=== PATIENT | female | born 1975 | race Caucasian/White ===

== ENCOUNTER 2017-06-28 11:08 | Emergency (ER) | payer OTHER ==
[2017-06-28 12:17] LABS: BILIRUBIN,URINE NEGATIVE (NEGATIVE); GLUCOSE, URINE (UA) NEGATIVE (NEGATIVE); KETONES,URINE (UA) NEGATIVE (NEGATIVE); LEUKOCYTE ESTERASE, URINE NEGATIVE (NEGATIVE); NITRITE,URINE NEGATIVE (NEGATIVE); OCCULT BLOOD,URINE SMALL (NEGATIVE); PH,URINE 5.5 PH (5.0-7.5); PROTEIN,URINE NEGATIVE (NEGATIVE); UROBILINOGEN,URINE 0.2 (NORMAL) E.U./dL (NORMAL)
[2017-06-28 12:22] LABS: CLARITY,URINE CLEAR (CLEAR)
[2017-06-28 12:28] LABS: BACTERIA,URINE Few /HPF (None Seen); RBC,URINE 0-5 /HPF (0-5); SQUAMOUS EPITHELIAL CELL,UR FEW Squamous (<= Few)
--- NOTE | 2017-06-28 13:16 | ED Physician Documentation ---
History of Present Illness - Stated complaint Stated Complaint: DIZZY - Chief complaint Chief Complaint: General - History obtained from History obtained from: Patient - History of Present Illness Timing: Other (For the last 6 weeks or so she has had intermittent episodes of feeling off balance that lasts from seconds to minutes at a time and at times are followed by nausea. It it can happen in any position and is not necessarily related to motion of the head. She denies any trouble with her hearing or tinnitus or ringing in her ears or anything else with her ears. She has blurry vision when happens but outside of that has had no visual changes. She denies any possibility of . Of note she has been feeling very fatigued over the same timeframe and has gained some weight because of decreased activity because of it. She notes no hair or nail changes, no recent travel. She is active duty in the [employer].) Review of Systems Constitutional: reports: Fatigue. denies: Fever, Chills, Myalgias, Weight Loss , Sweats Nose: denies: Rhinorrhea / runny nose, Congestion Throat: denies: Sore throat Respiratory: denies: Dyspnea, Cough GI: denies: Abdominal Pain, Vomiting, Diarrhea PD PAST MEDICAL HISTORY - Past Medical History Cardiovascular: Murmur : Kidney stones Musculoskeletal: Chronic back pain - Past Surgical History Past Surgical History: No - Present Medications Home Medications: Ambulatory Orders Medication Instructions Recorded Confirmed Levonorgestrel [Mirena] 12/30/15 - Allergies Allergies/Adverse Reactions: Allergies Allergy/AdvReac Type Severity Reaction Status Date / Time No Known Drug Allergies Allergy Verified 12/30/15 13:38 - Social History Does the pt smoke?: No Smoking Status: Never smoker Does the pt drink ETOH?: Yes - Immunizations Immunizations are current?: Yes PD ED PE NORMAL - Vitals Vital signs reviewed: Yes - General General: Alert and oriented X 3, No acute distress - HEENT HEENT: PERRL, EOMI - Neck Neck: Supple, no meningeal sign, No bony TTP - Cardiac Cardiac: RRR, No murmur - Respiratory Respiratory: No respiratory distress, Clear bilaterally - Abdomen Abdomen: Normal bowel sounds, Soft, Non tender - Back Back: No CVA TTP, No spinal TTP - Extremities Extremities: No edema, No calf tenderness / cord - Neuro Neuro: Alert and oriented X 3, Normal speech, Other (NIHSS zero) Results - Vitals Vitals: Vital Signs - 24 hr 06/28/17 06/28/17 11:19 13:23 Temperature 36.4 C L 36.8 C Heart Rate 66 77 Respiratory 16 16 Rate Blood Pressure 141/83 H 131/87 H O2 Saturation 99 97 Oxygen O2 Source Room air - Labs Labs: Laboratory Tests 06/28/17 06/28/17 06/28/17 11:50 13:28 13:28 WBC 6.7 RBC 4.52 Hgb 13.8 Hct 40.5 MCV 89.6 MCH 30.6 MCHC 34.1 RDW 12.2 Plt Count 212 MPV 8.5 Neut # 4.0 Lymph # 2.2 Delta # 0.4 Eos # 0.0 Baso # 0.0 Absolute Nucleated RBC 0.00 Nucleated RBC % 0.0 Sodium 137 Potassium 3.6 Chloride 105 Carbon Dioxide 24 Anion Gap 8.0 BUN 10 Creatinine 0.7 Estimated GFR (MDRD) 92 Glucose 106 H Calcium 9.1 Total Bilirubin 0.6 AST 25 ALT 17 Alkaline Phosphatase 51 Total Protein 7.5 Albumin 4.0 Globulin 3.5 Albumin/Globulin Ratio 1.1 Lipase 30 TSH Serum HCG, Qual Urine Color YELLOW Urine Clarity CLEAR Urine pH 5.5 Ur Specific [place] 1.020 Urine Protein NEGATIVE Urine Glucose (UA) NEGATIVE Urine Ketones NEGATIVE Urine Occult Blood SMALL H Urine Nitrite NEGATIVE Urine Bilirubin NEGATIVE Urine Urobilinogen 0.2 (NORMAL) Ur Leukocyte Esterase NEGATIVE Urine RBC 0-5 Urine WBC 0-3 Ur Squamous Epith Cells FEW Squamous Urine Bacteria Few Ur Microscopic Review INDICATED Urine Culture Comments NOT INDICATED Urine HCG, Qual 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[employer] 06/28/17 06/28/17 13:28 13:28 WBC RBC Hgb Hct MCV MCH MCHC RDW Plt Count MPV Neut # Lymph # Delta # Eos # Baso # Absolute Nucleated RBC Nucleated RBC % Sodium Potassium Chloride Carbon Dioxide Anion Gap BUN Creatinine Estimated GFR (MDRD) Glucose Calcium Total Bilirubin AST ALT Alkaline Phosphatase Total Protein Albumin Globulin Albumin/Globulin Ratio Lipase TSH 0.81 Serum HCG, Qual NEGATIVE Urine Color Urine Clarity Urine pH Ur Specific [place] Urine Protein Urine Glucose (UA) Urine Ketones Urine Occult Blood Urine Nitrite Urine Bilirubin Urine Urobilinogen Ur Leukocyte Esterase Urine RBC Urine WBC Ur Squamous Epith Cells Urine Bacteria Ur Microscopic Review Urine Culture Comments Urine HCG, Qual PD MEDICAL DECISION MAKING - ED course ED course: Intermittent vertigo, concerning though the fatigue over the same timeframe so lab work was done and negative. Advised to follow-up with her physician for further evaluation. Departure - Departure Disposition: 01 Home, Self Care Clinical Impression: Dizziness Fatigue Qualifiers: Fatigue type: unspecified Qualified Code(s): R53.83 - Other fatigue Condition: Good Record reviewed to determine appropriate education?: Yes Instructions: ED Dizziness [facility] Comments: [place] Return if worse. Discuss imaging of your head, specifically [place] Discharge Date/Time: 06/28/17 13:29
[2017-06-28 13:24] VITALS: BP 131/87
[2017-06-28 13:34] LABS: BASOPHILS % (AUTO) 0.5 %; EOSINOPHILS % (AUTO) 0.6 %; HGB - HEMOGLOBIN 13.8 g/dL (12.0-16.0); LYMPHOCYTES # (AUTO) 2.2 10^3/uL (1.5-3.5); LYMPHOCYTES % (AUTO) 32.7 %; MEAN CORPUSCULAR HEMOGLOBIN 30.6 pg (27.0-31.0); MEAN CORPUSCULAR HGB CONC 34.1 g/dL (32.0-36.0); MEAN CORPUSCULAR VOLUME 89.6 fL (81.0-99.0); MEAN PLATELET VOLUME 8.5 fL (7.9-10.8); MONOCYTES # (AUTO) 0.4 10^3/uL (0.0-1.0); MONOCYTES % (AUTO) 6.3 %; NEUTROPHILS % (AUTO) 59.9 %; PLT - PLATELET COUNT 212 10^3/uL (130-450); RED BLOOD COUNT 4.52 10^6/uL (4.20-5.40); RED CELL DISTRIBUTION WIDTH 12.2 % (12.0-15.0); WHITE BLOOD COUNT 6.7 x10^3/uL (4.8-10.8)
[2017-06-28 13:47] LABS: ALBUMIN/GLOBULIN RATIO 1.1 (1.0-2.2); BILIRUBIN,TOTAL 0.6 mg/dL (0.2-1.0); CALCIUM 9.1 mg/dL (8.5-10.3); CREATININE 0.7 mg/dL (0.4-1.0); TOTAL PROTEIN 7.5 g/dL (6.7-8.2)
[2017-06-28 14:12] LABS: HCG,QUALITATIVE BLOOD NEGATIVE
== END 2017-06-28 13:29 | disposition home or self-care (01) ==
LOC: ED 11:08
DX: R42 Dizziness and giddiness (principal); R53.83 Other fatigue
CPT/HCPCS: 36415; 80053; 81001; 81003; 81025; 83690; 84443; 84703; 85025; 87086; 99283

== ENCOUNTER 2018-05-19 13:24 | Emergency (ER) | payer OTHER ==
[2018-05-19] MEDS ORDERED: DEXAMETHASONE 10 MG/ML VIAL IVP STA (13:38)
[2018-05-19] MEDS ORDERED: FAMOTIDINE 20 MG in SODIUM CHLORIDE 0.9% 50 ML IV STA (13:38)
[2018-05-19] MEDS ORDERED: EPINEPHrine 1 MG/ML AMP IM STA (13:39)
[2018-05-19] MEDS ORDERED: diphenhydrAMINE INJ 50 MG/ML VIAL IVP STA (13:42)
--- NOTE | 2018-05-19 17:18 | ED Physician Documentation ---
History of Present Illness - Stated complaint Stated Complaint: BEE STING/THROAT SWELLING/DIZZY - Chief complaint Chief Complaint: General - Additonal information Additional information: 42-year-old female presents the emergency department for evaluation of an allergic reaction to a bee sting which occurred just prior to arrival.The patient reports throat tightness and shortness of breath. No relieving factors. Symptoms are described as severe. No other associated symptoms. Review of Systems Constitutional: denies: Fever, Chills Eyes: denies: Discharge Ears: denies: Ear pain Nose: denies: Congestion Throat: denies: Sore throat Respiratory: reports: Dyspnea GI: denies: Abdominal Pain : denies: Dysuria Musculoskeletal: denies: Neck pain Neurologic: denies: Generalized weakness Immunocompromised: denies: Chemotherapy PD PAST MEDICAL HISTORY - Past Medical History Cardiovascular: Murmur : Kidney stones Musculoskeletal: Chronic back pain - Past Surgical History Past Surgical History: Yes - Present Medications Home Medications: Ambulatory Orders Medication Instructions Recorded Confirmed Levonorgestrel [Mirena] 12/30/15 Epinephrine [Epipen 2-Ortiz] 0.3 mg IJ PRN PRN #1 auto.injct 05/19/18 Loratadine [Claritin] 10 mg PO DAILY PM 05/19/18 05/19/18 - Allergies Allergies/Adverse Reactions: Allergies Allergy/AdvReac Type Severity Reaction Status Date / Time No Known Drug Allergies Allergy Verified 05/19/18 13:28 - Social History Does the pt smoke?: No Smoking Status: Never smoker Does the pt drink ETOH?: Yes Does the pt have substance abuse?: No - Immunizations Immunizations are current?: Yes PD ED PE NORMAL - General General: Alert and oriented X 3 - HEENT HEENT: Atraumatic, PERRL, EOMI, Ears normal, Other (The tongue is within normal limits, there is no swelling of the posterior pharynx, the floor the mouth is moist and soft) - Neck Neck: Other (No stridor) - Cardiac Cardiac: RRR (Regular tachycardia), Strong equal pulses - Respiratory Respiratory: No respiratory distress, Clear bilaterally - Abdomen Abdomen: Soft, Non tender - Derm Derm: Normal color - Extremities Extremities: No deformity, No edema - Neuro Neuro: Alert and oriented X 3, Normal speech Results - Vitals Vitals: Vital Signs - 24 hr 05/19/18 05/19/18 05/19/18 13:27 14:04 14:44 Temperature 36.2 C L Heart Rate 114 H 90 93 Respiratory 22 18 18 Rate Blood Pressure 152/108 H 139/79 H 140/77 H O2 Saturation 98 99 99 05/19/18 05/19/18 05/19/18 15:20 16:22 17:27 Temperature Heart Rate 80 92 85 Respiratory 20 18 18 Rate Blood Pressure 140/70 H 129/81 H 131/75 H O2 Saturation 98 99 97 Oxygen O2 Source Room air PD MEDICAL DECISION MAKING - ED course ED course: The patient was treated with epinephrine, Decadron, Pepcid and Benadryl and the patient was observed in the emergency department for 4 hours. The patient had resolution of her symptoms early and had no rebound symptoms. The patient on final evaluation was resting comfortably and was back to her baseline. Currently, the patient appears appropriate for discharge and will be given a prescription for an epinephrine pen. I recommended follow-up with primary care. I discussed warning signs and recommended returning to the emergency department immediately for any worsening or any concerns Departure - Departure Disposition: 01 Home, Self Care Clinical Impression: Allergic reaction Qualifiers: Encounter type: initial encounter Qualified Code(s): T78.40XA - Allergy, unspecified, initial encounter Condition: Good Instructions: ED Bite Sting Insect Gen Allergic React Follow-Up: MARIA G Bishop [Provider Group] - Within 3 Days Prescriptions: Epinephrine [Epipen 2-Ortiz] 0.3 mg IJ PRN PRN #1 auto.injct PRN Reason: Anaphylaxis Comments: Please return to the emergency department for worsening symptoms or any concerns
[2018-05-19 17:39] VITALS: BP 128/80
== END 2018-05-19 17:39 | disposition home or self-care (01) ==
LOC: ED 13:24
DX: T63.441A Toxic effect of venom of bees, accidental (unintentional), initial encounter (principal)
CPT/HCPCS: 96365; 96372; 96375; 99283; J1200; J7040

== ENCOUNTER 2019-06-09 19:07 | Emergency (ER) | payer OTHER ==
[2019-06-09 19:18] VITALS: BP 129/81
[2019-06-09] MEDS ORDERED: AMOX/CLAV 875 MG/125 MG TABLET PO STA (19:41)
--- NOTE | 2019-06-09 19:41 | ED Physician Documentation ---
History of Present Illness - Stated complaint Stated Complaint: CONGESTION,CHEST congestion - Chief complaint Chief Complaint: Resp - History obtained from History obtained from: Patient - History of Present Illness Timing: How many days ago (5) Pain level max: 3 Pain level now: 3 - Additonal information Additional information: 43 year old female, chronic back pain, presents to the emergency department because of 5 days of nasal congestion, low grade temp of 100 at night, nonproductive, right ear fullness, frontal sinus pressure with headache and myalgia. 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 She denies photophobia, neck stiffness, neck pain. She denies any nausea, vomi ting or diarrhea, abdominal pain. She reports of chest heaviness with coughing. She was seen by PCP and was prescribed tessalon pearls and pseudofed without improvement. Review of Systems Constitutional: reports: Fever, Chills, Myalgias Eyes: denies: Loss of vision, Decreased vision, Photophobia, Discharge Ears: reports: Ear pain (right ear fullness) Nose: reports: Rhinorrhea / runny nose, Congestion. denies: Epistaxis Throat: denies: Dental pain / toothache, Oral lesions / sores, Sore throat Cardiac: denies: Palpitations, Pedal edema, Calf pain Respiratory: reports: Cough GI: denies: Abdominal Pain, Nausea, Vomiting : denies: Dysuria Skin: denies: Rash Musculoskeletal: denies: Neck pain, Back pain Neurologic: denies: Generalized weakness, Focal weakness, Numbness, Syncope PD PAST MEDICAL HISTORY - Past Medical History Cardiovascular: Murmur Neuro: None Endocrine/Autoimmune: None GI: None : Kidney stones Psych: None Musculoskeletal: Chronic back pain - Past Surgical History Past Surgical History: Yes - Present Medications Home Medications: Ambulatory Orders Medication Instructions Recorded Confirmed Levonorgestrel [Mirena] 12/30/15 EPINEPHrine [Epipen 2-Ortiz] 0.3 mg IJ PRN PRN #1 auto.injct 05/19/18 Loratadine [Claritin] 10 mg PO DAILY PM 05/19/18 05/19/18 Amox/Clav 875/125 [Augmentin] 1 each PO Q12H #20 tablet 06/09/19 Omeprazole 40 mg PO DAILY 06/09/19 06/09/19 - Allergies Allergies/Adverse Reactions: Allergies Allergy/AdvReac Type Severity Reaction Status Date / Time No Known Drug Allergies Allergy Verified 06/09/19 19:18 - Social History Does the pt smoke?: No Smoking Status: Never smoker Does the pt drink ETOH?: Yes Does the pt have substance abuse?: No - Immunizations Immunizations are current?: Yes PD ED PE NORMAL - Vitals Vital signs reviewed: Yes - General General: Alert and oriented X 3, No acute distress, Well developed/nourished, Other (tearful) - HEENT HEENT: Atraumatic, PERRL, EOMI, Ears normal, Other (bilateral TMs were visualized, translucent without erythema. 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 She reports of low grade temp and symptoms are not improving despite conservative management. She was nontoxic in appearance. No meningismus or photophobia, nausea, vomiting to suggest meningitis. Lungs were clear to auscultation and oxygen saturation was within normal limits. I do not suspect pneumonia. With persistent and worsening symptoms, I recommend to try over the counter saline drops to clear nasal passages. Patient was given a prescription of Augmentin BID for 10 days. Outpatient follow up with PCP in 3-5 days was recommended. Strict return instructions were. Patient expressed verbal understanding and was discharged in stable condition. Departure - Departure Disposition: 01 Home, Self Care Clinical Impression: Sinusitis Condition: Stable Instructions: ED Sinusitis Abx Tx Ch Follow-Up: MARIA G Bishop [Provider Group] - Within 3 Days Prescriptions: Amox/Clav 875/125 [Augmentin] 1 each PO Q12H #20 tablet Comments: PLEASE FOLLOW UP WITH YOUR CLINIC IN 3-5 DAYS. PLEASE USE OVER THE COUNTER SALINE NASAL SPRAY FOR SYMPTOMATIC TREATMENT OF NASAL CONGESTION. YOU MAY CONTINUE TO USE PSEUDOFED FOR CONGESTION AND TESSALON PEARLS FOR COUGH. PLEASE RETURN TO THE EMERGENCY DEPARTMENT IF YOU EXPERIENCE A WORSENING HEADACHE, DEVELOPMENT OF STIFF NECK, SHORTNESS OF BREATH, DIZZINESS, EPISODES OF PASSING OUT OR ANY NEW OR CONCERNING SYMPTOMS. Discharge Date/Time: 06/09/19 20:01
== END 2019-06-09 20:01 | disposition home or self-care (01) ==
LOC: ED 19:07
DX: J01.10 Acute frontal sinusitis, unspecified (principal)
CPT/HCPCS: 99282; 99284; A9270

== ENCOUNTER 2019-07-10 13:53 | Outpatient (CLI) | payer OTHER ==
--- NOTE | 2019-07-15 10:07 | Mammography Report ---
Reason: ROUTINE MAMMO Procedure Date: 07/10/2019 Accession Number: [id number] / [id number] Procedure: WANDER - Screening Mammo w/Brian CPT Code: Final Report FULL RESULT: EXAM: Screening Mammo w/Brian DATE: 07/10/2019 2:13 PM CLINICAL HISTORY: Screening encounter. Family history of breast cancer in the mother at the age of 66 and maternal aunt at the age of 62. TECHNIQUE: (B) - Bilateral CC, laterally exaggerated CC, MLO views were obtained. COMPARISON: None PARENCHYMAL PATTERN: (D) - The breast(s) demonstrate(s) heterogeneously dense fibroglandular parenchyma. FINDINGS: There are no suspicious masses, calcifications, or areas of distortion. IMPRESSION: Negative examination. BI-RADS category 1. RECOMMENDATION: (ANNUAL) - Recommend routine annual screening mammography. BI-RADS CATEGORY: (1) - Negative. STANDARD QUALIFYING STATEMENTS: 1. This examination was not reviewed with the aid of Computer-Aided Detection (CAD). 2. A negative or benign imaging report should not preclude biopsy if clinically suspicious findings are present. 3. Dense breasts may obscure an underlying neoplasm. 4. This examination was reviewed with the aid of 3D breast imaging (tomosynthesis).
== END 2019-07-10 13:54 | disposition home or self-care (01) ==
LOC: DI 13:53
PROVIDERS: ATTEND Obstetrics & Gynecology
DX: Z12.31 Encounter for screening mammogram for malignant neoplasm of breast (principal); Z80.3 Family history of malignant neoplasm of breast
CPT/HCPCS: 77063; 77067

== ENCOUNTER 2019-12-06 07:34 | Day surgery (SDC) | payer OTHER ==
[2019-12-06] MEDS ORDERED: LACTATED RINGERS 1,000 ML IV ONE ×2 (07:40→10:11)
[2019-12-06] MEDS ORDERED: CEFAZOLIN SODIUM IN 0.9 % NACL 2 GM/100 ML BAG IV ONE (07:52)
[2019-12-06 07:58] LABS: HCG UR QUAL NEGATIVE
[2019-12-06] MEDS ORDERED: ONDANSETRON 4 MG/2 ML VIAL IVP ONE (09:00)
[2019-12-06] MEDS ORDERED: fentaNYL 100 MCG/2 ML VIAL IVP ONE (09:00)
[2019-12-06] MEDS ORDERED: LIDOCAINE-MPF 2% 5 ML VIAL IM ONE (09:00)
[2019-12-06] MEDS ORDERED: DEXAMETHASONE 4 MG/ML VIAL IVP ONE (09:00)
[2019-12-06] MEDS ORDERED: PROPOFOL 200 MG/20 ML VIAL IVP ONE (09:00)
[2019-12-06] MEDS ORDERED: BUPIVACAINE 0.25% PF 30 ML VIAL ONE (09:33)
--- NOTE | 2019-12-06 09:34 | ANESTHESIA ---
Pre-Anesthesia VS, & Labs - Diagnosis RIght carpal tunnel syndrome - Procedure right carpal tunnel release Vital Signs: Temp Pulse Resp BP Pulse Ox 36. C L 79 18 135/90 H 98 12/06/19 07:49 12/06/19 07:49 12/06/19 07:49 12/06/19 07:49 12/06/19 07:49 Height 5 ft 6 in Weight (kg) 81.65 kg Body Mass Index 29.0 - Is Patient ?: No Home Medications and Allergies Loratadine [Claritin] 10 mg PO DAILY PM 05/19/18 Omeprazole 40 mg PO DAILY 06/09/19 Allergies/Adverse Reactions: Allergies Allergy/AdvReac Type Severity Reaction Status Date / Time acetaminophen [From Vicodin] AdvReac Nausea Verified 12/04/19 08:55 hydrocodone [From Vicodin] AdvReac Nausea Verified 12/04/19 08:55 Anes History & Medical History - Anesthetic History Anesthesia Complications: reports: No previous complications Family history of Anesthesia Complications: Denies Family history of Malignant Hyperthermia: Denies - Medical History Cardiovascular: reports: None Pulmonary: reports: None Gastrointestinal: reports: GERD Urinary: reports: None Neuro: reports: None Musculoskeletal: reports: Other Endocrine/Autoimmune: reports: None Skin: reports: None Smoking Status: Never smoker - Surgical History Urologic:  Gynecologic: Other Exam General: Alert, Oriented x3, Cooperative, No acute distress Dental: WNL Mouth Opening: Greater than 4 Fingerbreadths Neck Mobility: Normal Mallampati classification: II Thyromental Distance: 4-6 cm Respiratory: Lungs clear, Normal breath sounds, No respiratory distress, No accessory muscle use Cardiovascular: Regular rate, Normal S1, Normal S2, No murmurs Mental/Cognitive Status: Alert/Oriented X3, Normal for patient Cognitive Status: Within normal limits Plan Anesthesia Type: General Consent for Procedure(s) Verified and Reviewed: Yes Code Status: Attempt Resuscitation ASA classification: 2-Mild systemic disease Is this case an emergency?: No
[2019-12-06] MEDS ORDERED: HYDROmorphone 0.5 MG/0.5 ML SYRINGE IVP PRN (09:35)
[2019-12-06] MEDS ORDERED: ATROPINE ABBOJECT 1 MG/10 ML SYRINGE IVP PRN (09:35)
[2019-12-06] MEDS ORDERED: METOCLOPRAMIDE 10 MG/2 ML VIAL IVP PRN (09:35)
[2019-12-06] MEDS ORDERED: NALOXONE 0.4 MG/ML VIAL IVP PRN (09:35)
[2019-12-06] MEDS ORDERED: fentaNYL 100 MCG/2 ML VIAL IVP PRN (09:35)
[2019-12-06] MEDS ORDERED: ONDANSETRON 4 MG/2 ML VIAL IVP PRN ×2 (09:35→10:25)
[2019-12-06] MEDS ORDERED: ePHEDrine 50 MG/ML VIAL IVP PRN (09:35)
[2019-12-06] MEDS ORDERED: BUPIVACAINE 0.25% PF 30 ML VIAL SUBQ ONE ×2 (09:36)
[2019-12-06] MEDS ORDERED: LACTATED RINGERS 1,000 ML IV SCH (10:00)
[2019-12-06] MEDS ORDERED: oxyCODONE 5 MG TABLET PO PRN (10:25)
[2019-12-06] MEDS: fentaNYL 100 MCG/2 ML VIAL ONE ×2 (10:28→10:34)
--- NOTE | 2019-12-06 10:37 | ANESTHESIA POST OP EVALUATION ---
Anesthesia Post Eval - Post Anesthesia Eval Vitals: Last Vital Signs Temp 36.4 C L 12/06/19 10:20 Pulse 70 12/06/19 10:30 Resp 16 12/06/19 10:30 BP 123/76 12/06/19 10:30 Pulse Ox 100 12/06/19 10:30 CV Function Including HR & BP: positive: Stable Pain Control: positive: Satisfactory Nausea & Vomiting: positive: Negative Mental Status: positive: Baseline Respiratory Status: Airway Patent Hydration Status: Satisfactory
--- NOTE | 2019-12-06 10:42 | OPERATIVE REPORT ---
Operative Report - General Procedure Date: 12/06/19 - Other Other Information/Narrative: Date of Procedure: 06 December 2019 Planned Procedure: Right open carpal tunnel release Pre-op diagnosis: Right carpal tunnel syndrome Procedure performed: Right open carpal tunnel release Post-op diagnosis: Right carpal tunnel syndrome Primary Surgeon: GRAYSON SCHAEFER Secondary Surgeon: PATRICIA DUQUE Anesthesia: General LMA EBL: 5 ml Tourniquet: 18 minutes, right arm at 200mmHg. Specimen(s) Information: None Complication(s): None Condition: Stable to recovery Indications for Surgery: The patient is a 43-year-old right hand dominant female with a 4 to 5-year history of right wrist and hand symptoms in the median nerve distribution, primarily the long and radial side of the ring finger, with pain over the distal volar forearm. An EMG/NCS demonstrated compression of the right median nerve at the wrist. Clinical exam and EMG consistent with carpal tunnel syndrome. They had failed non-operartive management and desired surgical intervention. Risks of surgery were discussed to include bleeding, infection, postoperative wrist stiffness, damage to nerves (including the median nerve and recurrent motor branch to the thenar musculature), vessels, tendons, ligaments, anesthesia complications to include medication side effects and allergic reactions, blood clot, stroke, heart attack and even . After a discussion, they wished to proceed. Findings: Thickened transverse carpal ligament Descriptions of Procedure: The patient was met in the Preoperative Holding Area, at which time preoperative paperwork was confirmed. The right volar wrist was signed. The patient was then brought to Main Operating Room, placed supine on the Operating Room table and general anesthesia was induced. The operative extremity was then prepped and draped over a hand table in the normal sterile fashion after a well-padded tourniquet was placed on the proximal arm. A surgical timeout was conducted to confirm the correct patient, correct extremity and correct procedure and to con firm that antibiotics had been administered within 30 minutes of incision time. The operative extremity was then exsanguinated with an Esmarch bandage and tourniquet inflated to 200mmHg. Guo's cardinal line, and the hook of matilda were marked on the hand. A longitudinal incision was marked out from Guo's cardinal line proximally in line with the ulnar border of the flexed fourth digit, ulnar to the thenar crease. A 3cm longitudinal incision was made with a #15 blade through skin and subcutaneous tissue. Dissection was further carried out with tenotomy scissors. Small crossing vessels were coagulated with bipolar electrocautery, the palmar fascia was exposed, and split longitudinally in line with its fibers, and the transverse carpal ligament was exposed. A 15 blade was used to make a small incision in the transverse carpal ligament, and then a small mosquito clamp was introduced directly deep to the ligament above the contents of the carpal tunnel to gently free off any adhesions between the deep surface of the transverse carpal ligament and the median nerve. Dissection was carried distally under direct visualization, releasing the transverse carpal ligament until the palmar fat was was visualized. Digital examination was performed to ensure that there were no remaining tight bands constricting the nerve. Attention was then turned proximally, and a [place] elevator was passed deep to the transverse carpal ligament and antebrachial fascia, and these were incised in line with the nerve approximately 2 cm proximal to the distal wrist crease. This was performed under direct visualization. Again digital examination of the proximal extent of the release was performed to ensure no tight bands or constrictive points remained over the nerve. Satisfied that the carpal tunnel had been completely released, the wound was irrigated, and the tourniquet was let down. Pressure was held on the incision for approximately 5 minutes, and bleeding points were then cauterized with bipolar electrocautery. After ensuring good hemostasis, the wound was again irrigated and then closed using 4-0 nylon in interrupted horizontal mattress fashion. 10 mL of quarter percent Marcaine plain, was injected into the ella-incisional soft tissues. The wound was then dressed with Xeroform, 4 x 4 gauze Bessie and a compressive Stevie wrap. The patient was then awakened from general anesthesia without complication, brought to the Post Anesthesia Care for further recovery. Postoperative Plan: 1. The patient will be discharged from the Same Day Surgery Unit when discharge criteria are met. 2. The patient will remain in a soft dressing for 5 days. They can begin gentle wrist range of motion on postoperative day #1 or #2 as pain allows. 3. The patient will follow up in 1 to 2-weeks for a wound check and range of motion check. Sutures will be removed 10 to 14 days after surgery. 4. Expect return to full duty in 6-8 weeks, they may have wrist stiffness postoperatively.
[2019-12-06] MEDS ORDERED: oxyCODONE 5 MG TABLET ONE (11:32)
[2019-12-06 11:34] VITALS: BP 137/83
== END 2019-12-06 07:35 | disposition home or self-care (01) ==
LOC: SDS 07:34
PROVIDERS: ATTEND Orthopaedic Surgery
DX: G56.01 Carpal tunnel syndrome, right upper limb (principal); K21.9 Gastro-esophageal reflux disease without esophagitis
CPT/HCPCS: 81025